=== PATIENT | male | born 2000 | race Caucasian/White ===

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

== ENCOUNTER 2022-01-31 12:44 | Emergency (ER) | payer OTHER, BC ==
[~2022-01-31] VITALS: Ht 193 cm; Wt 127.3 kg
[~2022-01-31 12:44] MED LIST changes: +ACETAMINOPHEN500 MG PO; +AMOX TR-K CLV1 EACH PO; +CEFPODOXIME PR200 MG PO; +METRONIDAZOLE500 MG PO; +PANTOPRAZOLE SO40 MG PO
[2022-01-31] MEDS ORDERED: HYDROCODON-ACE1 EA11 PO (14:43)
[2022-01-31] MEDS ORDERED: CEPHALEXIN500 M1 PO (14:43)
== END 2022-01-31 15:10 | disposition home or self-care (01) ==
LOC: ED 12:44
DX: L05.01 Pilonidal cyst with abscess (principal); Z79.899 Other long term (current) drug therapy
CPT/HCPCS: 10080; 99282-25; A9270

== ENCOUNTER 2022-04-03 08:30 | Day surgery (SDC) | payer OTHER, BC ==
[~2022-04-03] VITALS: Ht 193 cm; Wt 125.0 kg
[~2022-04-03 08:30] MED LIST changes: +CEPHALEXIN500 M1 PO; +HYDROCODON-ACE1 EA11 PO
--- NOTE | 2022-04-03 10:07 | NUR ---
SADDLE BLOCK BY MOVIE EDITOR HEPAIN GIVEN TO MOVIE EDITOR DC TO BE GIVEN IN O R.
--- NOTE | 2022-04-03 10:49 | NUR ---
04/03/22 Siobhan9 Jazlyn Fritz 1046 PATIENT ARRIVES TO PACU SLEEPING. LIGHT SNORE AT TIMES. DOES NOT AWAKEN WITH VERBAL STIMULI. RESP EVEN AND UNLABORED, MASK AT 6 LITERS.
--- NOTE | 2022-04-03 12:06 | OR ---
[facility] [address] [place], [place] [address] Signed DATE OF OPERATION: 04/03/2022 SURGEON: Italia James MD PREOPERATIVE DIAGNOSIS: Recurrent pilonidal cyst. POSTOPERATIVE DIAGNOSIS: Recurrent pilonidal cyst. PROCEDURE: Excision pilonidal cyst. ESTIMATED BLOOD LOSS: None. INDICATIONS: Felicita is a 22-year-old gentleman, who had presented with recurrent pilonidal cyst. Apparently, I helped him several years ago. However, today he has three I and D site incision and drainage scars just to the right of the gluteal crease. That would be highly unlikely that I did that for him. ER physician. He had to go to the ER a few weeks prior to the office visit. He had it drained in the emergency room. That fresh scar is in the middle of the three scars and I can see that today. He said overall he is feeling much better. He is in college currently and he likes to lift weights to help stay in shape. He said he has a lot of pressure over the skin overlying his sacrum. He also complains of pruritus ani. He has been using some Desitin around his anus with good results. Once in a while he sees a little bright red blood per rectum. Sometimes he has pain with bowel movements. Consequently, he wanted to undergo a colonoscopy as well. He has been sent by his primary care provider with the two above issues. He wanted to go ahead and proceed with the pilonidal cyst surgery. I explained to Felicita and his mother the idea of a pilonidal cyst. We explained the need to excise the midline skin and all the pits and remove that underlying tissue. We tracked down any tracts underneath the skin. The wound will be left open to heal in secondarily. He and his mom were able to pack it with saline and soaked gauze until it heals from the bottom. He understands this will be a day surgery. There is risk to the surgery including, but not limited to bleeding, infection, scarring, change in contour of the skin as well as recurrent pilonidal cyst. He had expressed understanding and wished to proceed. DESCRIPTION OF PROCEDURE: Electronically Signed By: ITALIA JAMES MD 04/03/22 1206 PATIENT NAME: FELICITA MENDEZ OPERATIVE REPORT DATE OF : 01 REPORT #: [id number] PHYSICIAN: ITALIA JAMES MD PCP: LYLY ADAIR REPORT IS CONFIDENTIAL AND NOT TO BE RELEASED WITHOUT AUTHORIZATION [facility] [address] [place] [id number] Signed I met with Felicita, his mom and his girlfriend in our preop area. We had reviewed the above findings. Felicita underwent a saddle block by our nurse chemical instrumentation officer. After this, he was taken into the operating room and placed in the prone colin-knife position with appropriate padding and monitoring. He was given preoperative antibiotics. He had been given his heparin after the saddle block. He was then prepped and draped in the usual sterile fashion. We could see the three incision and drainage sites once all the heavy hair have been clipped away. They are all just to the right of the gluteal crease. The most recent scar is in the middle of the three I and D sites. He had several pits in the midline. We used our 15 blade knife to cut around the pits in the midline in a vertical elliptical fashion. We used the cautery and carefully and slowly followed that down and around this area. He really had no sinus tracts. There was no hair underneath the skin. It did relieve the skin from the underlying coccyx. The gluteal crease is much flatter at this point. We injected local anesthetic into the wound. The wound was irrigated and suctioned out until clear. We then packed the wound with saline soaked gauze and covered that with dry 4 x 4 gauze and mesh underwear. Felicita was then rotated into the supine position on his hospital bed and taken into the recovery room in stable condition. He had been given monitored anesthesia care with propofol during the procedure. Italia James MD ALB/MODL /[id number] cc: MD Lyly Humphrey PA Copies: ITALIA JAMES MD, LINDA PA ~ Electronically Signed By: ITALIA JAMES MD 04/03/22 1206 PATIENT NAME: FELICITA MENDEZ OPERATIVE REPORT DATE OF : 01 REPORT #: [id number] PHYSICIAN: ITALIA JAMES MD PCP: LYLY ADAIR REPORT IS CONFIDENTIAL AND NOT TO BE RELEASED WITHOUT AUTHORIZATION
== END 2022-04-03 11:30 | disposition home or self-care (01) ==
LOC: DS 08:30
PROVIDERS: ATTEND Colon & Rectal Surgery
PROC: 0HB8XZZ Excision of Buttock Skin, External Approach (ICD-10-PCS; principal; 2022-04-03 09:30)
DX: L05.91 Pilonidal cyst without abscess (principal); L29.0 Pruritus ani; K62.5 Hemorrhage of anus and rectum
CPT/HCPCS: J0690; J1644; J2001; J2250; J2405; J2704; J3010; J7121

== ENCOUNTER 2022-05-14 06:34 | Day surgery (SDC) | payer OTHER, BC ==
[~2022-05-14] VITALS: Ht 193 cm; Wt 126.5 kg
--- NOTE | 2022-05-14 08:00 | NUR ---
05/14/22 0759 Jazlyn Fritz 0757 PATIENT AWAKE OFF/ON, BUT VERY DROWSY. RESP EVEN AND UNLABORED, ROOM AIR SATS >96%.
--- NOTE | 2022-05-15 08:35 | OR ---
[facility] [address] [place], [place] [address] Signed DATE OF OPERATION: 05/14/2022 SURGEON: Italia James MD PREOPERATIVE DIAGNOSES: 1. Rectal bleeding. 2. Intermittent anal pain with bowel movements. 3. 16-year-old sister with recent diagnosis of ulcerative colitis. POSTOPERATIVE DIAGNOSIS: Unremarkable colonoscopy. PROCEDURE: Colonoscopy with random cold biopsies x3. ESTIMATED BLOOD LOSS: None. INDICATIONS: Felicita is a 22-year-old gentleman I have known because of his pilonidal cyst. In fact we just reexcised his recurrent pilonidal cyst. It is healing in now by secondary intention. He is going to discontinue the packing at this point forward. He has been going to college and also lifting weights and exercising and putting on a pressure over the sacrum. He has noticed some pruritus ani. He has been using Desitin with fairly good results. He has also seen bright red blood per rectum. He sometimes has pain with bowel movements. Consequently, his primary care provider asked him to come and see me for a colonoscopy. In the meantime, his 16-year-old sister was diagnosed with ulcerative colitis. She has responded well to the prednisone. In the office, I gave Felicita and his mother a pamphlet on colonoscopy. They understand the nature of the test. There is risk including, but not limited to gas bloating, crampy abdominal pain, bleeding, perforation requiring surgery and missed diagnosis. They also understand the need for IV conscious sedation. They had expressed understanding and wished to proceed. PROCEDURE NOTE: Felicita was taken into our endoscopy suite and placed in the left lateral decubitus position. He was given a total of 10 mg of Versed and 175 mcg of fentanyl to cover the case. Even then he was awake several times and moaning and looking around. If he would have recall of the test, he would probably benefit from monitored anesthesia care with propofol. We looked at his pilonidal cyst area and it is healing in with a nice full better granulation tissue. He is a large man with a deep gluteal cleft and when we Electronically Signed By: ITALIA JAMES MD 05/15/22 0835 PATIENT NAME: FELICITA MENDEZ OPERATIVE REPORT DATE OF : 01 REPORT #: [id number] PHYSICIAN: ITALIA JAMES MD PCP: TAY ADAIR REPORT IS CONFIDENTIAL AND NOT TO BE RELEASED WITHOUT AUTHORIZATION [facility] [address] [place], [place] [address] Signed spread the gluteal cleft around the anus, it looks quite healthy to us. No obvious papillomatosis or islands of granulation tissue that would suggest advanced pruritus ani. He had good sphincter tone. No external hemorrhoids. No masses. The adult colonoscope was then introduced and advanced under direct visualization of the camera without difficulty. Fortunately, he is very easy to pass the scope. Again, we used extra sedation and abdominal compression in order to advance the scope into the cecum itself. His prep was quite excellent. Just a few areas of liquid stool that I had to suction out. We did not turn the camera up into the terminal ileum. The scope was then slowly withdrawn. We took pictures throughout for photodocumentation. We took a biopsy in the distal right colon, transverse colon and left colon. Once in the rectum, the scope had been retroflexed and really no pathology above the anal canal. We saw no evidence of any inflammatory changes. There was no diverticula. No polyps. The gas had been suctioned out and the colonoscope removed. Felicita tolerated the procedure quite well. RECOMMENDATIONS: I will see Felicita back in my office in 7 to 14 days to review his results. We are going to discontinue the packing in his pilonidal cyst. Italia James MD ALB/MODL /[id number] cc: SUNNY Dior MD Copies: TAY ADAIR ANDREW L MD ~ Electronically Signed By: ITALIA JAMES MD 05/15/22 0835 PATIENT NAME: FELICITA MENDEZ OPERATIVE REPORT DATE OF : 01 REPORT #: [id number] PHYSICIAN: ITALIA JAMES MD PCP: TAY ADAIR REPORT IS CONFIDENTIAL AND NOT TO BE RELEASED WITHOUT AUTHORIZATION
--- NOTE | 2022-05-19 14:38 | PATH ---
[facility] [address] [place], [place] [address] Signed SPECIMEN(S): A COLON BIOPSY SPECIMEN SOURCE: A. COLON BIOPSY CLINICAL HISTORY: Pre: Rectal bleeding. History of sibling with colitis recently diagnosed. Post: Unremarkable colonoscopy FINAL PATHOLOGIC DIAGNOSIS: Colon, biopsies: - Benign colonic mucosa. - Negative for acute inflammation, granulomata, and microscopic colitis. DDF:[id number] MICROSCOPIC EXAMINATION: Histologic sections of all submitted blocks are examined by light microscopy. These findings, together with the gross examination, support the pathologic diagnosis. GROSS DESCRIPTION: The specimen, labeled and designated "Mega, Mitch, 1." and designated on the requisition "colon biopsy," is received in formalin and consists of four taylor soft tissue fragments that measure 0.2 to 0.7 cm in greatest dimension. The specimen is entirely submitted in (A1). FB (under the direct supervision of a pathologist) The Gross Description was prepared using a voice recognition system. The report was reviewed for accuracy; however, sound-alike word errors, addition and/or deletions may occur. If there is any question about this report, please contact Client Services. PERFORMING LABORATORY: The technical component was performed by [facility], [address] [place] [id number] (CLIA# [id number]). Professional interpretation was performed by [facility], [facility], [address] [place] [id number] (CLIA#: [id number]). Diagnostician: Maco Montaño DO Pathologist Electronically Signed 05/19/2022 PATIENT NAME: AURELIA MENDEZ PATHOLOGY DATE OF : 01 REPORT #: [id number] PHYSICIAN: ISABELLA KEN PCP: TAY ADAIR REPORT IS CONFIDENTIAL AND NOT TO BE RELEASED WITHOUT AUTHORIZATION [address] [place], [place] [address] Signed Copies: ~ PATIENT NAME: AURELIA MENDEZ PATHOLOGY DATE OF : 01 REPORT #: [id number] PHYSICIAN: ISABELLA PATHOLOGY PCP: TAY ADAIR REPORT IS CONFIDENTIAL AND NOT TO BE RELEASED WITHOUT AUTHORIZATION
== END 2022-05-14 08:55 | disposition home or self-care (01) ==
LOC: DS 06:34
PROVIDERS: ATTEND Colon & Rectal Surgery
PROC: 0DBL8ZX Excision of Transverse Colon, Via Natural or Artificial Opening Endoscopic, Diagnostic (ICD-10-PCS; 2022-05-14)
PROC: 0DBM8ZX Excision of Descending Colon, Via Natural or Artificial Opening Endoscopic, Diagnostic (ICD-10-PCS; 2022-05-14)
PROC: 0DBK8ZX Excision of Ascending Colon, Via Natural or Artificial Opening Endoscopic, Diagnostic (ICD-10-PCS; principal; 2022-05-14 07:30)
DX: K62.5 Hemorrhage of anus and rectum (principal); L05.91 Pilonidal cyst without abscess; L29.0 Pruritus ani
CPT/HCPCS: 99153; G0500; J2250; J3010; J7121

== ENCOUNTER 2024-11-21 04:21 | Emergency (ER) | payer OTHER ==
[~2024-11-21] VITALS: Ht 193 cm; Wt 106.0 kg
[2024-11-21] MEDS ORDERED: CHLORHEXIDINE473 ML (04:35)
[2024-11-21] MEDS ORDERED: MORPHINE SULFATE 4 MG/ML VIAL IV ONE (04:45)
[2024-11-21 04:53] LABS: BASOPHILS 0.3 % (0.2-1.2); EOSINOPHILS 3.5 % (0.8-7.0); LYMPHOCYTES 48.0 % (21.8-53.1); MCH 27.5 PG (25.7-32.2); MCHC 34.4 g/dL (32.3-36.5); MCV 79.9 fL (79.0-92.2); MONOCYTES 9.1 % (5.3-12.2); NEUTROPHILS 39.1 % (34.0-67.9); RBC 4.88 M/uL (4.63-6.08)
[2024-11-21 05:09] LABS: ALT (SGPT) 22.0 U/L (14-59); AST (SGOT) 15.0 U/L (15-37); GLOMERULAR FILTRATION RATE,EST 126.0 mL/min (>60); PROTEIN, TOTAL 7.5 g/dL (6.4-8.2); UREA NITROGEN 13.0 mg/dL (7-18)
[2024-11-21] MEDS ORDERED: AMOX TR-K CLV1 EAC1 PO (05:39)
[2024-11-21] MEDS ORDERED: HYDROCODONE BIT/ACETAMINOPHEN 5/325 MG 1 TAB HOME.PACK PO ONE (05:45)
[2024-11-21] MEDS ORDERED: AMOXICILLIN/CLAVULANATE K 875 MG HOME.PACK PO ONE (05:45)
[2024-11-21 06:00] VITALS: BP 113/62
== END 2024-11-21 06:00 | disposition home or self-care (01) ==
LOC: ED 04:21
PROVIDERS: Family Medicine
DX: L05.92 Pilonidal sinus without abscess (principal); L76.34 Postprocedural seroma of skin and subcutaneous tissue following other procedure; Z79.899 Other long term (current) drug therapy
CPT/HCPCS: 36415; 74177; 80053; 85025; 96374; 99284-25; A9270; J2270; Q9967